=== PATIENT | female | born 1990 | race Caucasian/White ===

== ENCOUNTER 2020-05-09 19:49 | Emergency (ER) | payer OTHER, BC, SELFPAY ==
--- NOTE | ~2020-05-09 | XR_ITS ---
EXAMINATION: XR toe 5th RT min 2V EXAM DATE: 05/09/2020 20:14 INDICATION: Initial encounter following injury, with pain of the right 5th toe. TECHNIQUE: Right 5th toe frontal, lateral and oblique projections obtained and reviewed. There is no prior study for comparison. FINDINGS: Acute closed posttraumatic fracture of the right 5th proximal phalanx with mild posterolat eral angulation. There is overlying soft tissue swelling. IMPRESSION: Right 5th proximal phalangeal shaft fracture, mild angulation. Reviewed, dictated and finalized at location A.
[2020-05-09 19:53] VITALS: BP 118/78; PULSE 91; RESP 20; TEMP 36.6; O2SAT 100
--- NOTE | 2020-05-09 20:13 | ED.EXTPRO ---
HPI - Extremity Problem General Chief complaint: Extremity Injury, Lower <Robi House PA-C - Last Filed: 05/09/20 20:19> Stated complaint: R foot, 5th toe injury <Robi House PA-C - Last Filed: 05/09/20 20:19> Time Seen by Provider: 05/09/20 19:51 <Robi House PA-C - Last Filed: 05/09/20 20:19> Source: patient <oRbi House PA-C - Last Filed: 05/09/20 20:19> Mode of arrival: ambulatory <Robi House PA-C - Last Filed: 05/09/20 20:19> Limitations: no limitations <Robi House PA-C - Last Filed: 05/09/20 20:19> History of Present Illness HPI Narrative: Patient is a 29-year-old female who presents with pinky toe injury occurred just prior to arrival struck the digit while walking has since had aching pain with swelling and tenderness denies other injuries or complaints has not been seen for this complaint on arrival resting comfortably in the room in no distress <Robi House PA-C - Last Filed: 05/09/20 20:19> Related Data Allergies/Adverse reactions: Allergies Allergy/AdvReac Type Severity Reaction Status Date / Time No Known Allergies Allergy Unverified 03/11/18 09:12 <Robi House PA-C - Last Filed: 05/09/20 20:19> Review of Systems Review of Systems: All systems reviewed & are unremarkable except as noted in HPI and below <Robi House PA-C - Last Filed: 05/09/20 20:19> PMFSH Family History Family History: Family History (Updated 12/04/15 @ 09:21 by DOCTOR UNKNOWN) Other Depression Family history of mental disorder <Robi House PA-C - Last Filed: 05/09/20 20:19> Social History Social History: Social History Smoking status: Never smoker Alcohol intake: current <ASHLEY Arroyo Last Filed: 05/09/20 20:19> Exam Narrative: Exam Narrative: GENERAL: Well-appearing, well-nourished, and in no acute distress. HEAD: Normocephalic, atraumatic. EYES: PERRLA and EOMI. ENT: Nares clear, no rhinorrhea or epistaxis. Mucous membranes moist. EXTREMITIES: Tenderness with minimal swelling of the right pinky toe SKIN: Warm, dry, no rash. NEURO: No focal deficits. Alert and oriented x3. Neurovascularly intact. PSYCH: Normal mood and affect. <Robi House PA-C - Last Filed: 05/09/20 20:19> Course Course Emergency Course: Patient in the room in no distress aware of case findings treatment plan and diagnosis <Robi House PA-C - Last Filed: 05/09/20 20:19> Vital Signs Vital signs: Vital Signs Temperature 97.8 F 05/09/20 19:53 Pulse Rate 91 05/09/20 19:53 Respiratory Rate 20 05/09/20 19:53 Blood Pressure 118/78 05/09/20 19:53 Pulse Oximetry 100 05/09/20 19:53 Temperature 97.8 F 05/09/20 20:26 Pulse Rate 86 05/09/20 20:26 Respiratory Rate 16 05/09/20 20:26 Blood Pressure 118/80 05/09/20 20:26 Pulse Oximetry 98 05/09/20 20:26 <Robi House PA-C - Last Filed: 05/09/20 20:19> Vital Signs Temperature 97.8 F 05/09/20 19:53 Pulse Rate 91 05/09/20 19:53 Respiratory Rate 20 05/09/20 19:53 Blood Pressure 118/78 05/09/20 19:53 Pulse Oximetry 100 05/09/20 19:53 Temperature 97.8 F 05/09/20 20:26 Pulse Rate 86 05/09/20 20:26 Respiratory Rate 16 05/09/20 20:26 Blood Pressure 118/80 05/09/20 20:26 Pulse Oximetry 98 05/09/20 20:26 <Aletha Anthony MD - Last Filed: 05/10/20 03:14> MDM - Extremity (Nontraumatic) MDM Narrative Medical decision making narrative: Patients injury or pain is consistent with musculoskeletal etiology. No signs of neurological or vascular compromise on exam. Compartments and tisues are soft without signs of compartment syndrome. Pain is felt appropriate for further evaluation on an outpatient basis. <Robi House PA-C - Last Filed: 05/09/20 20:19> Discharge Plan Discharge Clinical Impression:
[2020-05-09 20:26] VITALS: BP 118/80; PULSE 86; RESP 16; TEMP 36.6; O2SAT 98
== END 2020-05-09 20:27 | disposition home or self-care (01) ==
LOC: ANHED 20:18
PROVIDERS: Emergency Provider Emergency Medicine
DX: S92.511A Displaced fracture of proximal phalanx of right lesser toe(s), initial encounter for closed fracture (principal); W22.8XXA Striking against or struck by other objects, initial encounter
CPT/HCPCS: 73660; 99284; A9270

== ENCOUNTER 2022-09-30 17:34 | Emergency (ER) | payer OTHER, SELFPAY ==
[2022-09-30 17:47] VITALS: BP 133/79; PULSE 100; RESP 16; TEMP 37; O2SAT 97
--- NOTE | 2022-09-30 17:54 | ED.URI ---
HPI - URI/Sore Throat General Chief Complaint: Upper Respiratory Infection Stated Complaint: SOB/ Cough Time Seen by Provider: 09/30/22 17:38 Source: patient Mode of arrival: ambulatory Limitations: no limitations History of Present Illness HPI Narrative: Ms. Bautista is a 32-year-old female patient presenting to clinic today with complaints of shortness of breath and cough times 5-6 days She reports no fever or chills but she has got a lot of congestion and feels as though she cannot take a deep breath or breathe through her nose. MD elicited complaint: sore throat and nasal congestion Related Data Home Medications Medication Instructions Recorded Confirmed amitriptyline 10 mg tablet 10 mg HS 09/30/22 09/30/22 etonogestrel 0.12 mg-ethinyl 1 vag ring vaginal DIRECTED 09/30/22 09/30/22 estradiol 0.015 mg/24 hr vaginal ring (EluRyng) Allergies Allergy/AdvReac Type Severity Reaction Status Date / Time No Known Allergies Allergy Verified 09/30/22 17:49 Review of Systems Review of Systems: Pertinent positives per HPI. Patient denies any fever, chills, rash, headache, visual changes, dizziness, chest pain, palpitations, nausea, vomiting, diarrhea, constipation, abdominal pain, or any urinary issues. PMFSH Family History Family History Other Depression Family history of mental disorder Social History Social History Smoking status: Never smoker Alcohol intake: current Comments At the time of my signature, I reviewed and agree with the nursing past medical, surgical, social, and family history. There is no relevant family history pertinent to the patient complaint. Exam Narrative: General: Well-developed, well nourished, in no apparent distress Head: Normocephalic, atraumatic Eyes: Pupils equally round and reactive to light bilaterally, EOM intact, sclera and conjunctive clear, no discharge, lids normal Ears: TMs intact and clear, ear canals clear, no drainage, grossly hearing normal. Nose: Nares patent, clear nasal discharge, moderate inflammation, no sinus tenderness. Mouth: Oral pharynx without lesions or masses, good dentition, MMM. postnasal drip Neck: Supple, trachea midline, no enlargement of anterior or posterior cervical nodes, no thyroid masses or goiter palpable. Cardio: Regular rate and rhythm, s1 and s2 normal, no murmur appreciated. Resp: lung sounds diminished in the bases otherwise clear, no rhonchi, rales, wheezing or rubs Course Course Emergency Course: Portions of this record may have been created with voice recognition software. Level of Care: Express Care Visit Vital Signs Vital signs: Vital Signs Temperature 37.0 C 09/30/22 17:47 Pulse Rate 100 09/30/22 17:47 Respiratory Rate 16 09/30/22 17:47 Blood Pressure 133/79 09/30/22 17:47 Pulse Oximetry 97 09/30/22 17:47 Oxygen Delivery Room Air 09/30/22 17:47 Temperature 37.0 C 09/30/22 17:47 Pulse Rate 100 09/30/22 17:47 Respiratory Rate 16 09/30/22 17:47 Blood Pressure 133/79 09/30/22 17:47 Pulse Oximetry 97 09/30/22 17:47 Oxygen Delivery Room Air 09/30/22 17:47 Vital signs reviewed MDM - URI/Sore Throat MDM Narrative Medical decision making narrative: at the time of visit patient is resting comfortably on the exam table. Differential Diagnosis Differential diagnosis: Likely sinusitis, viral infection, influenza and pharyngitis Discharge Plan Discharge Clinical Impression: Upper respiratory infection, Bronchitis Patient Disposition: Home, Self-Care Condition: Stable Instructions: Antibiotic Form, Upper Respiratory Infection (ED), Acute Bronchitis (ED) Additional Instructions: Take prescription medications only as prescribed- prednisone and albuterol inhaler Increase fluids and stay well hydrated Tylenol/motrin for pain/fe
== END 2022-09-30 18:02 | disposition home or self-care (01) ==
PROVIDERS: Emergency Provider Nurse Practitioner Family; PCP Physician Assistant
DX: J06.9 Acute upper respiratory infection, unspecified (principal); J40 Bronchitis, not specified as acute or chronic
CPT/HCPCS: 99213; G0463

== ENCOUNTER 2022-12-21 09:27 | Emergency (ER) | payer OTHER, SELFPAY ==
[2022-12-21 09:48] VITALS: BP 134/80; PULSE 110; RESP 16; TEMP 37.6; O2SAT 98
--- NOTE | 2022-12-21 10:09 | ED.GENADULT ---
HPI - General Adult General Chief complaint: Dental/Oral Stated complaint: facial swollen right side Time Seen by Provider: 12/21/22 10:10 Source: patient, RN notes reviewed and old records reviewed Mode of arrival: ambulatory Limitations: no limitations History of Present Illness HPI narrative: 32-year-old female presents to the [facility] with right-sided facial swelling that she woke up with this morning. Reports seeing a dentist a year ago. Has very poor dentition with multiple decayed teeth and caries. Had seen primary care provider yesterday was diagnosed with trigeminal neuralgia and given a shot of Toradol. Denies fevers. He able to open and close mouth without issue Able to maintain own secretions Onset (ago): hour(s) Related Data Home Medications Medication Instructions Recorded Confirmed etonogestrel 0.12 mg-ethinyl 1 vag ring vaginal ONCE 12/21/22 12/21/22 estradiol 0.015 mg/24 hr vaginal ring (NuvaRing) gabapentin 300 mg capsule 300 mg PO TID 12/21/22 12/21/22 topiramate 25 mg sprinkle capsule 25 mg PO DAILY 12/21/22 12/21/22 (Topamax) Allergies Allergy/AdvReac Type Severity Reaction Status Date / Time No Known Allergies Allergy Verified 12/21/22 09:58 Review of Systems Review of Systems: All systems reviewed & are unremarkable except as noted in HPI and below Constitutional: Constitutional: Reports no additional constitutional complaints Eyes: Eyes: Reports no additional eye complaints ENT: Reports as per HPI Cardiovascular: Cardiovascular: Reports no additional cardiovascular complaints, Denies chest pain and Denies dyspnea Respiratory: Respiratory: Reports no additional respiratory complaints, Denies chest congestion, Denies cough and Denies dyspnea Gastrointestinal: Gastrointestinal: Reports no additional gastrointestinal complaints, Denies abdominal pain, Denies nausea and Denies vomiting Musculoskeletal: Musculoskeletal: Reports no additional musculoskeletal complaints Integumentary/Breasts: Skin/Breast: Reports system reviewed and no additional complaints, except as docu Neurologic: Reports system reviewed and no additional complaints, except as documented Psychiatric: Psychiatric: Reports no additional psychiatric complaints Allergic/Immunologic: Allergic/Immunologic: Reports no additional allergic/immunologic complaints PMFSH Family History Family History Other Depression Family history of mental disorder Social History Social History Smoking status: Never smoker Alcohol intake: current Comments At the time of my signature, I reviewed and agree with the nursing past medical, surgical, social, and family history. There is no relevant family history pertinent to the patient complaint. Exam Const: General: cooperative, healthy appearing, comfortable, no acute distress, well developed, alert and well nourished Nutritional Appearance: well nourished Orientation/consciousness: patient oriented x3 Limitations: no limitations HENMT: Head: normal to inspection Ears: hearing grossly normal bilaterally and external ears normal Face/Nose/Sinus: Normal external nose present, Normal nares present, Normal nasal mucous membranes and turbinates present and normal facial exam Face and sinus: normal facial exam Mouth: Yes Normal oral and palatal mucosa present, Yes lip normal and Yes moist mucous membranes Teeth and gingiva: abnormal tooth and associated gingiva (Multiple teeth decayed, Caries. Swelling to the right lower gingiva), caries, gingiva abnormal edematous and diffusely erythematous (Right lower) and poor dentition Throat: posterior oropharynx normal and uvula midline Other: Swelling noted to the right lower jaw, no cellulitic changes noted to the outside Eyes: General: appearance normal, both eyes and all related structures Alignment and Position: alignmen
== END 2022-12-21 10:25 | disposition home or self-care (01) ==
PROVIDERS: Emergency Provider Nurse Practitioner; PCP Physician Assistant
DX: K04.7 Periapical abscess without sinus (principal)
CPT/HCPCS: 99213; G0463

== ENCOUNTER 2023-08-10 16:37 | Emergency (ER) | payer OTHER, SELFPAY ==
[2023-08-10 16:49] VITALS: BP 115/72; PULSE 106; RESP 18; TEMP 36.9; O2SAT 98
--- NOTE | 2023-08-10 17:20 | ED.URI ---
HPI - URI/Sore Throat General Chief Complaint: Upper Respiratory Infection Stated Complaint: fever,congestion,headache Source: patient and RN notes reviewed Mode of arrival: ambulatory Limitations: no limitations History of Present Illness HPI Narrative: 32-year-old female presented for complaint of headache, body aches, sinus pressure/congestion, cough, fever/chills. onset 2 days ago, worse yesterday. Denies sick contacts. Taking Tylenol and Mucinex. Denies sob, wheezing, n/v/d. MD elicited complaint: cough Related Data Home Medications Medication Instructions Recorded Confirmed etonogestrel 0.12 mg-ethinyl 1 vag ring vaginal ONCE 12/21/22 12/21/22 estradiol 0.015 mg/24 hr vaginal ring (NuvaRing) gabapentin 300 mg capsule 300 mg PO TID 12/21/22 12/21/22 topiramate 25 mg sprinkle capsule 25 mg PO DAILY 12/21/22 12/21/22 (Topamax) Allergies Allergy/AdvReac Type Severity Reaction Status Date / Time No Known Allergies Allergy Verified 08/10/23 17:16 Review of Systems Review of Systems: CONSTITUTIONAL: Endorses malaise, chills, sweats, fever EYES: Denies visual changes, redness, or discharge ENT: Reports rhinorrhea, congestion, sinus pain, denies otalgia, sore throat CARDIOVASCULAR: Denies chest pain, palpitations, edema RESPIRATORY: Reports cough, post nasal drainage. Denies dyspnea GASTROINTESTINAL: Denies abdominal pain, nausea, vomiting, diarrhea SKIN: Denies rash or itching MUSCULOSKELETAL: Endorses myalgia NEUROLOGIC: endorses headache PMFSH Past Medical History Medical History (Updated 08/10/23 @ 17:33 by Kiesha Garcia APRN) No pertinent past medical history Family History Family History Other Depression Family history of mental disorder Social History Social History Smoking status: Never smoker Alcohol intake: current Exam Narrative: GENERAL: mildly Ill-appearing, nontoxic no acute distress. HEAD: Normocephalic EYES: conjunctivae clear ENT: Mucous membranes moist. TMs pearly keith with dull light reflex bilaterally; no tragal tenderness. Oropharynx erythematous without lesions or exudate, no drooling, no hoarseness, no trismus, uvula midline. No tripod positioning, muffled voice, soft palate or pharyngeal wall bulging NECK: Supple. No lymphadenopathy CHEST: Clear to auscultation, breath sounds equal. No wheezing, rhonchi, rales, or stridor. No respiratory distress, speaks in full sentences. HEART: Regular rate and rhythm. No murmur heard. SKIN: Warm, dry, no rash. NEURO: Alert and oriented x3. PSYCH: Normal mood and affect Course Course Emergency Course: Patient is aware of diagnosis, understands and agrees to treatment plan. Anticipatory guidance given. Patient agrees to follow-up as directed and is aware of reasons to seek care at the emergency department. Portions of this record may have been created with voice recognition software Level of Care: Express Care Visit Vital Signs Vital signs: Vital Signs Temperature 98.5 F 08/10/23 16:49 Pulse Rate 106 H 08/10/23 16:49 Respiratory Rate 18 08/10/23 16:49 Blood Pressure 115/72 08/10/23 16:49 Pulse Oximetry 98 08/10/23 16:49 Oxygen Delivery Room Air 08/10/23 16:49 Temperature 98.5 F 08/10/23 16:49 Pulse Rate 106 H 08/10/23 16:49 Respiratory Rate 18 08/10/23 16:49 Blood Pressure 115/72 08/10/23 16:49 Pulse Oximetry 98 08/10/23 16:49 Oxygen Delivery Room Air 08/10/23 16:49 reviewed MDM - URI/Sore Throat MDM Narrative Medical decision making narrative: positive COVID. Results reviewed with patient. Discussed physical exam findings. Advised supportive measures and signs/symptoms to go to the ER. Pt is appropriate for outpt treatment and f/u. Differential Diagnosis Differential diagnosis: Likely upper respiratory infection, sinusitis and viral in
== END 2023-08-10 17:34 | disposition home or self-care (01) ==
PROVIDERS: Emergency Provider Nurse Practitioner Family; PCP Physician Assistant
DX: U07.1 COVID-19 (principal)
CPT/HCPCS: 87426; 87804; 99213; C9803; G0463

== ENCOUNTER 2024-07-15 09:59 | Emergency (ER) | payer OTHER, SELFPAY ==
[2024-07-15 10:16] VITALS: BP 137/76; PULSE 90; RESP 19; TEMP 36.6; O2SAT 100
--- NOTE | 2024-07-15 10:24 | ED_ITS ---
HPI - Back Pain/Injury General Chief Complaint: Back Pain/Injury Stated Complaint: Lower Back Pain Time Seen by Provider: 07/15/24 10:51 Source: patient and RN notes reviewed Mode of arrival: ambulatory Limitations: no limitations History of Present Illness HPI Narrative: 33-year-old female presents concern for low back pain for 3 days. Reports she was sitting on a hard floor for a while and when she got up she had back pain. She denies any injury or trauma. She has been taking Tylenol ibuprofen. She reports pain is radiating down both legs, worse on the right. She denies perianal anesthesia, bowel or bladder dysfunction, weakness in any extremity, abdominal pain. She denies fever. MD elicited complaint: back pain Related Data Home Medications Medication Instructions Recorded Confirmed etonogestrel 0.12 mg-ethinyl 1 vag ring vaginal ONCE 12/21/22 07/15/24 estradiol 0.015 mg/24 hr vaginal ring (NuvaRing) gabapentin 300 mg capsule 300 mg PO TID 12/21/22 07/15/24 topiramate 25 mg sprinkle capsule 25 mg PO DAILY 12/21/22 07/15/24 (Topamax) Allergies Allergy/AdvReac Type Severity Reaction Status Date / Time No Known Allergies Allergy Verified 07/15/24 10:23 Review of Systems Review of Systems: CONSTITUTIONAL: Denies malaise, chills, sweats, or fever. CARDIOVASCULAR: Denies chest pain, palpitations, or edema. RESPIRATORY: Denies cough or dyspnea. GASTROINTESTINAL: Denies abdominal pain, nausea, vomiting, diarrhea, loss of bowel function GENITOURINARY: Denies dysuria, hematuria, frequency, loss of bladder function. SKIN: Denies rash or itching. MUSCULOSKELETAL: Reports low back pain NEUROLOGIC: Denies numbness, weakness, or headache. All systems reviewed & are unremarkable except as noted in HPI and below PMFSH Past Medical History Medical History (Updated 07/15/24 @ 10:59 by Mary Meredith NP) No pertinent past medical history Family History Family History Other Depression Family history of mental disorder Social History Social History Smoking status: Never smoker Alcohol intake: current Comments At time of signature, agree with nursing past medical, surgical, social and family history. There is no relevant family history pertinent to the presenting complaint Exam Narrative: GENERAL: Well-appearing, well-nourished, and in no acute distress. HEAD: Normocephalic, atraumatic. EYES: PERRLA and EOMI. NECK: Supple. No lymphadenopathy. CHEST: Clear to auscultation. No respiratory distress. HEART: Regular rate and rhythm. Distal pulses palpable and equal, cap refill <3 seconds ABDOMEN: Soft, nontender, nondistended, normal active bowel sounds, no palpable or pulsatile masses. No CVA tenderness MUSCULOSKELETAL: Normal range of motion and strength in all extremities; 5/5 strength with hip flexion and extension, dorsiflexion and extension, knee flexion and extension, plantar flexion and extension. Normal sensation in dermatomal distributions with sensitivity to light touch and pain. No midline back tenderness to palpation. No paraspinal tenderness. Transfers from lying to sitting to standing. SKIN: Warm, dry, no rash. No ecchymosis, erythema, open wounds to back. NEURO: No focal deficits. Alert and oriented x3. Reflexes intact. Normal gait. PSYCH: Normal mood and affect Course Course Emergency Course: Patient is aware of diagnosis, understands and agrees to treatment plan. Anticipatory guidance given. Patient agrees to follow-up as directed and is aware of reasons to seek care at the emergency department. Portions of this record may have been created with voice recognition software Level of Care: Express Care Visit Vital Signs Vital signs: Vital Signs Temperature 97.9 F 07/15/24 10:16 Pulse Rate 90 07/15/24 10:16 Respiratory Rate 19 07/15/24 10:16 Blood Pressure 137/76 07/15/24 10:16 Pulse Oximetry 100 07/15/24 10:16 Oxygen Delivery Room Air 07/15/24 10:16 Temperature 97.9 F 07/15/24 10:16 Pulse Rate 90 07/15/24 10:16 Respiratory Rate 19 07/15/24 10:16 Blood Pressure 137/76 07/15/24 10:16 Pulse Oximetry 100 07/15/24 10:16 Oxygen Delivery Room Air 07/15/24 10:16 Reviewed. MDM - Back Pain/Injury MDM Narrative Medical decision making narrative: I evaluated this in the express care. History is obtained from patient who is an independent historian and physical exam was performed.? Available medical records were reviewed. ? Exam findings and relevant testing show no acute concerns or changes; patient is non-toxic appearing and is in no distress. No risk factors or findings concerning for epidural abscess, diskitis, vertebral osteomyelitis, cord compression, cauda equina, vertebral fracture or bone malignancy, AAA, or pyelonephritis. Patient instructed to consider further imaging and workup through their primary care physician as an outpatient if symptoms persist. ? Differential diagnosis and treatment plan were discussed with the patient. Patient agrees with discussion and after shared medical decision making agrees with plan of care. All questions were answered to the patient's satisfaction. Patient is appropriate for outpatient treatment and follow-up. Critical Care Time Critical Care Time Critical Care Time: No Discharge Plan Discharge Clinical Impression: Nonspecific low back pain Patient Disposition: Home, Self-Care Condition: Stable Instructions: Acute Low Back Pain (ED) Additional Instructions: Please follow up with your Primary Care Doctor within 48-72 hours - call for an appointment. Walking and other gentle exercising several times a week has been shown to improve back pain; bed rest is not recommended. Take prednisone as directed, take muscle relaxers every 8 hours as needed for muscle spasm- do not drive or make any important decisions while on this medication for it can make you drowsy. You may apply ice and then heat to the area as needed. If you experience any worsening pain, swelling, numbness, weakness please go to ER. Contact your doctor or go to the emergency department if you develop problems with bladder or bowel function, weakness or loss of feeling in one or both of your legs, or any other serious concerns. Prescriptions: New cyclobenzaprine 10 mg tablet 10 mg PO TID PRN (Reason: muscle spasm) Qty: 20 0RF prednisone 20 mg tablet 40 mg PO DAILY 5 Days Qty: 10 0RF No Action topiramate [Topamax] 25 mg Capsule, Sprinkle 25 mg PO DAILY gabapentin 300 mg Capsule 300 mg PO TID etonogestrel-ethinyl estradiol [NuvaRing] 0.12-0.015 mg/24 hr Ring 1 vag ring VAGINAL ONCE chlorhexidine gluconate [Peridex] 0.12 % mouthwash 15 ml buccal BID Qty: 473 0RF Rx Instructions: Swish and spit twice daily Follow-up/Referrals: PHYSICIAN,BARREL LOADER [Primary Care Provider] - Time of Disposition: :00
== END 2024-07-15 11:05 | disposition home or self-care (01) ==
PROVIDERS: Emergency Provider Nurse Practitioner
DX: M54.50 Low back pain, unspecified (principal)
CPT/HCPCS: 99213; G0463